=== PATIENT | male | born 1975 | race Asian ===

== ENCOUNTER 2024-12-09 15:33 | Emergency (ER) | payer OTHER ==
[~2024-12-09] VITALS: Ht 167.6 cm; Wt 79.5 kg
[2024-12-09 15:45] LABS: BASOPHILS 0.8 % (0.2-1.2); EOSINOPHILS 4.1 % (0.8-7.0); LYMPHOCYTES 44.1 % (21.8-53.1); MCH 28.9 PG (25.7-32.2); MCHC 33.2 g/dL (32.3-36.5); MCV 87.1 fL (79.0-92.2); MONOCYTES 8.5 % (5.3-12.2); NEUTROPHILS 42.3 % (34.0-67.9); RBC 5.64 M/uL (4.63-6.08)
[2024-12-09] MEDS ORDERED: ASPIRIN 81 MG CHEW PO ONE (15:45)
[2024-12-09] MEDS ORDERED: NITROGLYCERIN 0.4 MG SUBL SL PRN (15:45)
[2024-12-09 16:03] LABS: ALT (SGPT) 26.0 U/L (14-59); AST (SGOT) 15.0 U/L (15-37); GLOMERULAR FILTRATION RATE,EST 86.0 mL/min (>60); PROTEIN, TOTAL 7.6 g/dL (6.4-8.2); UREA NITROGEN 17.0 mg/dL (7-18)
[2024-12-09 18:19] VITALS: BP 128/82
--- NOTE | 2024-12-11 13:54 | EKG ---
[facility] [address] [facility] [place], [place] [address] Signed Normal sinus rhythm ST \T\ T wave abnormality, consider inferior ischemia Abnormal ECG No previous ECGs available Confirmed by Jonas Gar MD () on 12/11/2024 1:54:25 PM Electronically Signed By: JONAS GAR MD 12/11/24 1354 PATIENT NAME: BOBO SIMS Electrocardiogram DATE OF : 73 PHYSICIAN: JONAS GAR MD REPORT #: [id number] REPORT IS CONFIDENTIAL AND NOT TO BE RELEASED WITHOUT AUTHORIZATION
== END 2024-12-09 18:19 | disposition home or self-care (01) ==
LOC: ED 15:33
PROVIDERS: Emergency Medicine
DX: R07.89 Other chest pain (principal); Z88.8 Allergy status to other drugs, medicaments and biological substances
CPT/HCPCS: 36415; 71045; 80053; 83735; 84484; 85025; 93005; 93010; 99285-25; A9270